=== PATIENT | male | born 1965 | race Caucasian/White ===

== ENCOUNTER 2017-01-01 14:54 | Emergency (ER) | payer BC ==
[2017-01-01 21:03] VITALS: BP 128/72
--- NOTE | 2017-01-01 22:42 | EDM.PDOC ---
ED HPI Trauma - General Chief Complaint: Upper Extremity Injury/Pain Stated Complaint: RIGHT SHOULDER INJURY Time Seen by Provider: 01/01/17 15:00 Source: Reports: Patient, Family () History Limitations: Reports: No limitations - History of Present Illness INITIAL COMMENTS - FREE TEXT/NARRATIVE: 51-year-old [id number] male comes in today with complaints of right shoulder pain. 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 Pain radiated down lateralizing the shoulder. He denies significant numbness or weakness. He denies neck pain, chest pain or shortness of breath. Has no other complaints other than right shoulder pain. Occurred When: this morning Occurred Where: work Method of Injury: direct blow Severity: mild Pain/Injury Location: Reports: upper extremity, right Consciousness: Reports: no loss of consciousness, remembers incident Associated Symptoms: Reports: no other symptoms Allergies/ADRs: Allergies amoxicillin Allergy (Verified 01/01/17 15:40) Cannot Remember cephalexin [From Keflex] Allergy (Verified 01/01/17 15:40) Cannot Remember doxycycline Allergy (Verified 01/01/17 15:40) Cannot Remember Home Medications: Ambulatory Orders Albuterol [Proair HFA] 1 puff INH Q4H PRN 01/01/17 [Confirmed 01/01/17] Ibuprofen 600 - 800 mg PO Q8H PRN 01/01/17 [Confirmed 01/01/17] Past Medical History - Past Health History Medical/Surgical History: Denies Medical/Surgical History Social & Family History - Tobacco Use Smoking Status *Q: Never Smoker Second Hand Smoke Exposure: No - Caffeine Use Caffeine Use: Reports: Coffee - Recreational Drug Use Recreational Drug Use: No Review of Systems - Review of Systems Review Of Systems: ROS reveals no pertinent complaints other than HPI. Trauma Exam - Physical Exam Exam: See Below Exam Limited By: No limitations General Appearance: Reports: alert, WD/WN, no apparent distress Head: Reports: atraumatic, normocephalic Eyes: bilateral eye: EOMI Nose: Reports: normal inspection Throat/Mouth: Reports: Normal voice Neck: Reports: non-tender, full range of motion Respiratory Exam: Reports: no respiratory distress Back: Reports: full range of motion Extremities: Reports: no evidence of injury, normal range of motion, non-tender , no pedal edema, pain with movement, other (patient has no tenderness over the proximal shoulder, a.c. joint or clavicle. He is able to actively range his shoulder he has no impingement symptoms with Neer and Martinez testing. He is good strength with flexion and abduction has mild weakness with resisted internal rotation on the right has good biceps strength of finger wrist forearm elbow and shoulder range of motion to her cuff strength a left shoulders 5 out of 5 in all planes he has normal range of motion of the left shoulder). Denies : bony-point tenderness Course - Vital Signs Last Recorded V/S: Last Vital Signs Temp 98.5 F 01/01/17 15:00 Pulse 80 01/01/17 15:00 Resp 16 01/01/17 15:00 BP 128/72 01/01/17 15:00 Pulse Ox 98 01/01/17 15:00 - Radiology Interpretation Free Text/Narrative:: X-rays right shoulder Impression Negative for fracture dislocation right shoulder Departure - Departure Time of Disposition: 16:00 Disposition: Home, Self-Care 01 Condition: good Clinical Impression: Contusion of right shoulder Qualifiers: Encounter type: initial encounter Qualified Code(s): S40.011A - Contusion of right shoulder, initial encounter Referrals: Alissa Corey MD [Primary Care Provider] - Forms: ED Department Discharge Additional Instructions: 1. Ibuprofen 800 mg 3 times a day with food for 10 days. This causes any stomach upset, heartburn 2. If continuation of pain beyond 2 weeks follow up with her primary care and recommend initiation of physical therapy for rotator cuff strengthening exercises. 3. if pain resolves he may increase her activities as tolerated. - Assessment/Plan Assessment:: Right shoulder contusion Plan: 1. Rest 2. ibuprofen 800 mg 3 times a day with food stop if this causes any stomach upset 3. ice for the right shoulder as needed. 4. Follow up with primary care in 2 weeks if not better would recommend physical therapy to treat and evaluate.
== END 2017-01-01 16:30 | disposition home or self-care (01) ==
LOC: KA.ED 14:54
DX: S40.011A Contusion of right shoulder, initial encounter (principal); Z88.1 Allergy status to other antibiotic agents; Z88.8 Allergy status to other drugs, medicaments and biological substances; W26.8XXA Contact with other sharp object(s), not elsewhere classified, initial encounter; Y93.89 Activity, other specified
CPT/HCPCS: 73030-RT; 99283

== ENCOUNTER 2018-12-29 09:53 | Emergency (ER) | payer BC, OTHER ==
[2018-12-29 10:01] VITALS: BP 129/79
--- NOTE | 2018-12-29 10:49 | CR ---
[id number] RAD/RAD Ankle Left 3V Min EXAM: RAD Ankle Left 3V Min CLINICAL DATA: TRAUMA COMPARISON: NO PREVIOUS SIMILAR EXAM IS AVAILABLE. FINDINGS: A distal left fibular diametaphyseal fracture is seen. There is also suspicion for a distal left tibial diametaphyseal fracture.. IMPRESSION: NONDISPLACED DISTAL LEFT FIBULAR FRACTURE. QUESTION OF DISTAL LEFT TIBIAL FRACTURE ALSO. Robb Evans MD 12/29/18 1048 Thank you for allowing us to participate in the care of your patient.
--- NOTE | 2018-12-29 10:52 | CR ---
[id number] RAD/RAD Tibia Fibula Left Exam: RAD Tibia Fibula Left Indication:FALL AT WORK,HEARD CRACKING. Comparison: No prior imaging for comparison. Discussion: Acute nondisplaced obliquely orientated distal fibular metaphysis fracture. No other fracture. Impression: As above. Jose Juan Jack MD 12/29/18 1051 Thank you for allowing us to participate in the care of your patient.
--- NOTE | 2018-12-29 11:08 | EDM.PDOC ---
ED HPI GENERAL MEDICAL PROBLEM - General Chief Complaint: Lower Extremity Injury/Pain Stated Complaint: FALL AT WORK - LT ANKLE Time Seen by Provider: 12/29/18 10:30 Source of Information: Reports: Patient, Family () History Limitations: Reports: No Limitations - History of Present Illness Onset: Today Onset Date: 12/29/18 Onset Time: 10:00 Duration: Minutes:, Constant Location: Reports: Lower Extremity, Left Quality: Reports: Ache Severity: Mild Improves with: Reports: Immobilization Worsens with: Reports: Movement Context: Reports: Other (fall at work) Left Leg Pain Score (Numeric/FACES): 9 - Related Data Allergies Allergy/AdvReac Type Severity Reaction Status Date / Time amoxicillin Allergy Cannot Verified 01/01/17 15:40 Remember cephalexin [From Keflex] Allergy Cannot Verified 01/01/17 15:40 Remember doxycycline Allergy Cannot Verified 01/01/17 15:40 Remember lactose Allergy Cannot Verified 12/29/18 10:01 Remember Home Meds: Home Meds Albuterol [Proair HFA] 1 - 2 puff INH Q4H PRN 01/01/17 [History] Ibuprofen 600 - 800 mg PO Q8H PRN 01/01/17 [History] Fexofenadine [Bridget] 180 mg PO DAILY 12/29/18 [History] Fluticasone Propionate [Flonase] 2 puff NASBOTH DAILY 12/29/18 [History] Fluticasone/Salmeterol [Advair 500-50] 1 puff INH BID 12/29/18 [History] Sildenafil Citrate [Sildenafil] 60 mg PO ASDIRECTED PRN 12/29/18 [History] Past Medical History - Past Health History Medical/Surgical History: Denies Medical/Surgical History HEENT History: Reports: Impaired Vision Respiratory History: Reports: Asthma Social & Family History - Caffeine Use Caffeine Use: Reports: Coffee - Alcohol Use Alcohol Use History: Yes Number of Drinks Per Day: 1 Alcohol Use Frequency: Daily - Recreational Drug Use Recreational Drug Use: No - Living Situation & Occupation Living situation: Reports: Occupation: Employed ([employer] in [place], [place]) Review of Systems - Review of Systems Review Of Systems: See Below Constitutional: Denies: Chills, Fever Eyes: Reports: Glasses Ears: Reports: No Symptoms Nose: Reports: Congestion. Denies: Purulent Discharge Mouth/Throat: Reports: No Symptoms Respiratory: Reports: Cough. Denies: Sputum, Hemoptysis Cardiovascular: Denies: Chest Pain, Edema, Irregular Heart Rate, Palpitations GI/Abdominal: Denies: Nausea, Vomiting Genitourinary: Reports: No Symptoms Musculoskeletal: Reports: Joint Pain (left ankle), Joint Swelling (left ankle lateral) Skin: Reports: No Symptoms Neurological: Reports: No Symptoms Psychiatric: Reports: No Symptoms ED EXAM, GENERAL - Physical Exam Exam: See Below Exam Limited By: No Limitations General Appearance: Alert, WD/WN, No Apparent Distress Eye Exam: Bilateral Eye: EOMI, PERRL Ears: Normal External Exam, Normal Canal, Normal TMs Ear Exam: Bilateral Ear: TM normal Nose: Normal Inspection, Normal Mucosa Throat/Mouth: Normal Inspection, Normal Lips, Normal Teeth, Normal Gums, Normal Oropharynx, Normal Voice, No Airway Compromise Head: Atraumatic, Normocephalic Neck: Normal Inspection, Supple, Non-Tender, Full Range of Motion. No: Lymphadenopathy (L), Lymphadenopathy (R) Respiratory/Chest: No Respiratory Distress, Lungs Clear, Normal Breath Sounds, No Accessory Muscle Use, Chest Non-Tender Cardiovascular: Normal Peripheral Pulses, Regular Rate, Rhythm, No Murmur Peripheral Pulses: 2+: Carotid (L), Carotid (R), Posterior Tibial (L), Posterior Tibial (R), Dorsalis Pedis (L), Dorsalis Pedis (R) GI/Abdominal: Soft, Non-Tender Back Exam: Normal Inspection Extremities: Other (Notable swelling over the lateral ankle left tenderness to palpation. Achilles is intact. Skin is warm dry and intact. No abrasions. No ecchymosis. Pulses are 2+ he has no tenderness to palpation along the medial ankle. Knee and hip range of motion are normal. Other extremity on the right shows full range of motion of ankle knee and hip. Bilateral upper extremities showed normal range of motion.) Neurological: Alert, Oriented, CN II-XII Intact, Normal Cognition, No Motor/ Sensory Deficits Psychiatric: Normal Affect, Normal Mood Skin Exam: Warm, Dry, Intact, Normal Color, No Rash Lymphatic: No Adenopathy ED TRAUMA EXTREMITY PROCEDURES - Splinting Left Lower Extremity Pre-Procedure NV Status: Normal Post-Procedure NV Status: Normal Splint Material: Fiberglass Splint Design: Posterior Applied & Form Fitted By: Provider Provider Post-Splint Application NV Check: NV Status Normal, Good Position Complications: No Course - Vital Signs Last Recorded V/S: Last Vital Signs Temp 97.4 F 12/29/18 09:56 Pulse 111 H 12/29/18 09:56 Resp 16 12/29/18 09:56 BP 129/79 12/29/18 09:56 Pulse Ox 97 12/29/18 09:56 - Orders/Labs/Meds Orders: Active Orders 24 hr Category Date Time Status CXR [Chest 2V] [CR] Stat Exams 12/29/18 10:57 Ordered CBC WITH AUTO DIFF [HEME] Stat Lab 12/29/18 10:56 Ordered - Radiology Interpretation Free Text/Narrative:: X-rays 2 views left tib-fib Interpretation: There is a distal fibular fracture mild displacement Impression: Left mildly displaced comminuted distal fibular fracture X-rays 3 views left ankle Interpretation: Mildly displaced comminuted spiral distal fibular fracture Impression: Left lateral malleolus fracture mild displacement - Re-Assessments/Exams Free Text/Narrative Re-Assessment/Exam: 12/29/18 11:20 Posterior splint was applied with a good pedal pulses. Patient tolerated procedure. His pain was well-controlled. He denied wanting anything for pain. Ice pack was applied to left ankle Departure - Departure Time of Disposition: 11:45 Disposition: DC/Tfer to Other 70 Condition: Good Clinical Impression: Fracture of fibula, distal, left, closed Qualifiers: Encounter type: initial encounter Fracture morphology: torus Qualified Code(s) : S82.822A - Torus fracture of lower end of left fibula, initial encounter for closed fracture - Discharge Information Instructions: Displaced Fibular Ankle Fracture Treated With ORIF Referrals: Alissa Corey MD [Primary Care Provider] - Forms: ED Department Discharge - My Orders Last 24 Hours: My Active Orders 12/29/18 10:56 CBC WITH AUTO DIFF [HEME] Stat 12/29/18 10:57 CXR [Chest 2V] [CR] Stat - Assessment/Plan Last 24 Hours: My Active Orders 12/29/18 10:56 CBC WITH AUTO DIFF [HEME] Stat 12/29/18 10:57 CXR [Chest 2V] [CR] Stat Assessment:: Left distal fibular fracture Plan: 1. Compression of Den wrap and posterior splint was applied to left ankle. 2. Discussion with the patient and his about ORIF left distal fibula versus cast immobilization. Patient elects to get this fixed to expedite recovery. 3. Patient will remain nothing by mouth 4. Patient will go to [facility] through the ER and Dr. Dominguez will plan on fixing his ankle this afternoon. 5. Patient's pain was well-controlled at time of discharge. He will be discharged in the care of his and will go directly to the emergency room.
--- NOTE | 2018-12-29 11:48 | CR ---
[id number] RAD/RAD Chest PA And Lateral EXAM: RAD Chest PA And Lateral CLINICAL DATA: COUGH COMPARISON: CORRELATION IS MADE WITH THE EXAM OF 2016. FINDINGS: The lungs are clear but hyperaerated. The cardiomediastinal contour is normal. The regional bones and soft tissues are unremarkable. IMPRESSION: QUESTION OF REACTIVE AIRWAY DISEASE. Robb Evans MD 12/29/18 [id number] Thank you for allowing us to participate in the care of your patient.
== END 2018-12-29 12:00 | disposition other institution (70) ==
LOC: KA.ED 09:53
DX: S82.822A Torus fracture of lower end of left fibula, initial encounter for closed fracture (principal); J45.909 Unspecified asthma, uncomplicated; Z91.011 Allergy to milk products; Z88.1 Allergy status to other antibiotic agents; W19.XXXA Unspecified fall, initial encounter; Y99.0 Civilian activity done for income or pay
CPT/HCPCS: 29515; 36415; 71046; 73590-LT; 73610-LT; 85025; 99284-25

== ENCOUNTER 2018-12-31 09:37 | Emergency (ER) | payer BC, OTHER ==
--- NOTE | 2018-12-31 10:18 | EDM.PDOC ---
ED HPI GENERAL MEDICAL PROBLEM - General Chief Complaint: Lower Extremity Injury/Pain Stated Complaint: FOOT PAIN Time Seen by Provider: 12/31/18 10:00 Source of Information: Reports: Patient, Family () History Limitations: Reports: No Limitations - History of Present Illness INITIAL COMMENTS - FREE TEXT/NARRATIVE: Maged presents to emergency room with complaints of left ankle pain. He is status post ORIF left distal fibula on Tuesday. He is placed in a cam walker boot and dressing with crutches instructed to weight-bear as tolerated. He lost his balance with the crutches yesterday evening and fell backwards. He noticed increasing pain in his ankle. He tried elevation and pain medications. He does state that it is better today but they were concerned that he may have done something to his ankle and therefore presents to the emergency room. His pain is well controlled. He is comfortable with his . No other complaints are voiced. 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) - Related Data Allergies Allergy/AdvReac Type Severity Reaction Status Date / Time amoxicillin Allergy Cannot Verified 12/31/18 10:09 Remember cephalexin [From Keflex] Allergy Cannot Verified 12/31/18 10:09 Remember doxycycline Allergy Cannot Verified 12/31/18 10:09 Remember lactose Allergy Cannot Verified 12/31/18 10:09 Remember Home Meds: Home Meds Albuterol [Proair HFA] 1 - 2 puff INH Q4H PRN 01/01/17 [History] Ibuprofen 600 - 800 mg PO Q8H PRN 01/01/17 [History] Fexofenadine [Bridget] 180 mg PO DAILY 12/29/18 [History] Fluticasone Propionate [Flonase] 2 puff NASBOTH DAILY 12/29/18 [History] Fluticasone/Salmeterol [Advair 500-50] 1 puff INH BID 12/29/18 [History] Sildenafil Citrate [Sildenafil] 60 mg PO ASDIRECTED PRN 12/29/18 [History] Hydrocodone/Acetaminophen [Hydrocodon-Acetaminophen 5-325] 1 - 2 tab PO Q6H PRN 12/31/18 [History] Past Medical History - Past Health History Medical/Surgical History: Denies Medical/Surgical History HEENT History: Reports: Impaired Vision Respiratory History: Reports: Asthma Social & Family History - Caffeine Use Caffeine Use: Reports: Coffee - Living Situation & Occupation Living situation: Reports: Occupation: Employed ([employer] in [place], [place]) Review of Systems - Review of Systems Review Of Systems: ROS reveals no pertinent complaints other than HPI. ED EXAM, GENERAL - Physical Exam Exam: See Below Exam Limited By: No Limitations General Appearance: Alert, WD/WN, No Apparent Distress Extremities: Normal Inspection, Other (Patient has a Cam Walker boot in his left ankle Den wrap around it dressing is dry toes are mobile. Normal knee range of motion and hip range of motion on the left) Neurological: Alert, Oriented, No Motor/Sensory Deficits Psychiatric: Normal Affect, Normal Mood Skin Exam: Warm Course - Radiology Interpretation Free Text/Narrative:: X-rays left ankle: There is interfragment screw as well as plate and screws stabilizing left distal fibular fracture nondisplaced Impression: Distal fibular fracture and nondisplaced with hardware in good position and alignment Departure - Departure Time of Disposition: 10:40 Disposition: Home, Self-Care 01 Condition: Good Clinical Impression: Status post ORIF of fracture of ankle Fracture of fibula, distal, left, closed Qualifiers: Encounter type: initial encounter Fracture morphology: torus Qualified Code(s) : S82.822A - Torus fracture of lower end of left fibula, initial encounter for closed fracture Closed fracture of fibula, distal Qualifiers: Encounter type: subsequent encounter Fracture morphology: torus Laterality: left Fracture healing: with routine healing Qualified Code(s): S82.822D - Torus fracture of lower end of left fibula, subsequent encounter for fracture with routine healing - Discharge Information Instructions: Displaced Fibular Ankle Fracture Treated With ORIF Referrals: Alissa Corey MD [Primary Care Provider] - Forms: ED Department Discharge Additional Instructions: 1. continue with current care and instructions by Dr. Dominguez. 2. Continue with ice and elevation 3. Pain medications as needed 4. Follow-up with Dr. Dominguez at regular scheduled appointment. - Assessment/Plan Assessment:: s/p left fibula fracture ORIF POD#2 fall with increased ankle pain. Plan: 1. continue with current care and instructions by Dr. Dominguez. 2. Continue with ice and elevation 3. Pain medications as needed 4. Follow-up with Dr. Dominguez at regular scheduled appointment.
--- NOTE | 2018-12-31 10:46 | CR ---
[id number] RAD/RAD Ankle Left 3V Min Exam: RAD Ankle Left 3V Min Indication:FALL, STATUS POST FIBULA ORIF TUESDAY. Comparison: December 29, 2018 Discussion: Postsurgical change from recent ORIF. Hardware remains intact. Fracture fragments are in normal alignment. No new fractures. Impression: Postsurgical changes from recent fibula ORIF. No new fracture. Jose Juan Jack MD 12/31/18 1044 Thank you for allowing us to participate in the care of your patient.
[2018-12-31 15:53] VITALS: BP 122/78
== END 2018-12-31 10:40 | disposition home or self-care (01) ==
LOC: KA.ED 09:37
DX: S82.822D Torus fracture of lower end of left fibula, subsequent encounter for fracture with routine healing (principal); J45.909 Unspecified asthma, uncomplicated; Z79.899 Other long term (current) drug therapy; Z88.1 Allergy status to other antibiotic agents; Z91.011 Allergy to milk products; W19.XXXD Unspecified fall, subsequent encounter
CPT/HCPCS: 73600-LT; 99283-25

== ENCOUNTER 2020-10-04 09:17 | Emergency (ER) | payer BC ==
[2020-10-04 09:23] VITALS: BP 143/94; PULSE 74
--- NOTE | 2020-10-04 10:08 | EDM.PDOC ---
ED HPI GENERAL MEDICAL PROBLEM - General Chief Complaint: General Stated Complaint: LEFT INDEX FINGER??? Time Seen by Provider: 10/04/20 09:46 Source of Information: Reports: Patient History Limitations: Reports: No Limitations - History of Present Illness INITIAL COMMENTS - FREE TEXT/NARRATIVE: Presents to the emergency room by self for a left index finger swelling, redness, and pain. Denies any known trauma. He notes that last night he felt like there might be something in his finger and he started taking added at the DIP joint on the palmar aspect. There is just a small little open site at the crease there no bleeding purulent drainage however he does have redness and swelling down close but not past the MCP joint. He is able to flex and extend his finger without difficulty at this time. Patient denies any systemic symptoms. 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 His fingers are quite greasy and dirty at this time. Left Finger-Index Pain Score (Numeric/FACES): 6 - Related Data Allergies Allergy/AdvReac Type Severity Reaction Status Date / Time amoxicillin Allergy Cannot Verified 10/04/20 09:24 Remember azithromycin [From Zithromax] Allergy Hives Verified 10/04/20 09:26 cephalexin [From Keflex] Allergy Cannot Verified 10/04/20 09:24 Remember doxycycline Allergy Cannot Verified 10/04/20 09:24 Remember lactose Allergy Cannot Verified 10/04/20 09:24 Remember Home Meds: Home Meds Albuterol [Proair HFA] 1 - 2 puff INH Q4H PRN 01/01/17 [History] Ibuprofen 600 - 800 mg PO Q8H PRN 01/01/17 [History] Fexofenadine [Bridget] 180 mg PO DAILY 12/29/18 [History] Fluticasone Propionate [Flonase] 2 puff NASBOTH DAILY 12/29/18 [History] Fluticasone/Salmeterol [Advair 500-50] 1 puff INH BID 12/29/18 [History] Sildenafil Citrate [Sildenafil] 60 mg PO ASDIRECTED PRN 12/29/18 [History] Hydrocodone/Acetaminophen [Hydrocodon-Acetaminophen 5-325] 1 - 2 tab PO Q6H PRN 12/31/18 [History] Past Medical History - Past Health History Medical/Surgical History: Denies Medical/Surgical History HEENT History: Reports: Impaired Vision Respiratory History: Reports: Asthma Musculoskeletal History: Reports: Fracture - Past Surgical History Musculoskeletal Surgical History: Reports: ORIF, Other (See Below) Other Musculoskeletal Surgeries/Procedures:: Left fibula fracture with ORIF 12/29/18 Social & Family History - Tobacco Use Tobacco Use Status *Q: Never Tobacco User - Caffeine Use Caffeine Use: Reports: Coffee - Recreational Drug Use Recreational Drug Use: No - Living Situation & Occupation Living situation: Reports: Occupation: Employed ([employer] in [place], [place]) ED ROS GENERAL - Review of Systems Review Of Systems: See Below Constitutional: Reports: No Symptoms. Denies: Fever Respiratory: Reports: No Symptoms Cardiovascular: Reports: No Symptoms GI/Abdominal: Reports: No Symptoms Musculoskeletal: Reports: Other (index finger swelling/pain/redness) Skin: Reports: Erythema, Wound Neurological: Reports: No Symptoms Psychiatric: Reports: No Symptoms ED EXAM, GENERAL - Physical Exam Exam: See Below Exam Limited By: No Limitations General Appearance: Alert, WD/WN, No Apparent Distress Eye Exam: Bilateral Eye: EOMI Nose: Normal Inspection Head: Atraumatic, Normocephalic Neck: Normal Inspection, Supple Extremities: Other (left index finger swelling, warm to touch, erythema is fro mthe tip of the finger down close but not past the MCP joint. ) Neurological: Alert, Oriented Psychiatric: Normal Affect, Normal Mood Skin Exam: Warm, Dry, Intact, Erythema Lymphatic: No Adenopathy Course - Vital Signs Last Recorded V/S: Last Vital Signs Temp 97.9 F 10/04/20 09:21 Pulse 74 10/04/20 09:21 Resp 14 10/04/20 09:21 BP 143/94 H 10/04/20 09:21 Pulse Ox 94 L 10/04/20 09:21 - Orders/Labs/Meds Orders: Active Orders 24 hr Category Date Time Status Fingers Second Digit Lt F1 [CR] Stat Exams 10/04/20 09:35 Ordered - Re-Assessments/Exams Free Text/Narrative Re-Assessment/Exam: 10/04/20 10:14 Negative for any fracture or foreign body or signs of air in the subcutaneous tissue. Due to his allergy list clindamycin indicate this time. Patient is going to take probiotics as well called prescription to the pharmacy. He does not have signs of flexor tenosynovitis at this time however I cautioned it the advised him thoroughly educated him on signs and symptoms of this and that it could get worse and need to return and may need to go to a higher acuity facility for the orthopedic surgeon to look at his finger. At this time is not indicated however he verbalized understanding on return precautions and have low threshold on do ing so. Nursing staff cleaned his finger up antiseptic used tetanus was 3 [address] a blue finger splint to keep it from further injury/rice therapy discussed. Distal neurovascular intact. 10/04/20 10:16 Departure - Departure Time of Disposition: 10:09 Disposition: Home, Self-Care 01 Condition: Good Clinical Impression: Cellulitis of left index finger - Discharge Information *PRESCRIPTION DRUG MONITORING PROGRAM REVIEWED*: No *COPY OF PRESCRIPTION DRUG MONITORING REPORT IN PATIENT SMITA: No Instructions: Cellulitis, Adult Referrals: Alissa Corey MD [Primary Care Provider] - Additional Instructions: if it gets more swollen redness spread farther, and cant extend the finger due to the pain and swelling, need to return immediately. keep it straight, ice it, take antibiotics. Sepsis Event Note (ED) - Evaluation Sepsis Screening Result: No Definite Risk - Focused Exam Vital Signs: Vital Signs Temp Pulse Resp BP Pulse Ox 10/04/20 09:21 97.9 F 74 14 143/94 H 94 L - My Orders Last 24 Hours: My Active Orders 10/04/20 09:35 Fingers Second Digit Lt F1 [CR] Stat - Assessment/Plan Last 24 Hours: My Active Orders 10/04/20 09:35 Fingers Second Digit Lt F1 [CR] Stat
--- NOTE | 2020-10-04 10:27 | CR ---
[id number] RAD/RAD Fingers Left EXAM: RAD Fingers Left INDICATION: SWELLING AND PAIN AT DIP JOINT. COMPARISON: None. DISCUSSION: Soft tissue swelling throughout the second digit. Mild to moderate osteoarthritis of the second and third digit metacarpophalangeal, proximal interphalangeal and distal interphalangeal joints. Tiny ossicles along the ulnar aspect of the second MCP and third PIP joints are likely degenerative, but could represent tiny chronic avulsion fractures. No acute fracture or dislocation is identified. IMPRESSION: 1. Mild to moderate osteoarthritis. 2. Diffuse second digit soft tissue swelling. Brandon Flanagan MD 10/04/20 1026 Thank you for allowing us to participate in the care of your patient.
== END 2020-10-04 10:25 | disposition home or self-care (01) ==
LOC: KA.ED 09:17
DX: L03.012 Cellulitis of left finger (principal); J45.909 Unspecified asthma, uncomplicated; Z79.899 Other long term (current) drug therapy; Z88.0 Allergy status to penicillin; Z88.1 Allergy status to other antibiotic agents; Z91.011 Allergy to milk products
CPT/HCPCS: 73140-F1; 99283; 99283-25

== ENCOUNTER 2023-06-01 19:03 | Emergency (ER) | payer BC ==
[2023-06-01] MEDS ORDERED: Naloxone 0.4 MG/ML SDV IVPUSH PRN (19:27)
[2023-06-01] MEDS: Sodium Chloride 0.9% 10 ML Syringe FLUSH PRN (19:28)
[2023-06-01] MEDS: Ondansetron 4 MG/2 ML SDV IVPUSH ONE (19:40)
[2023-06-01] MEDS: HYDROmorphone 1 MG/ML Syringe IVPUSH ONE (19:46)
[2023-06-01] MEDS: Sodium Chloride 0.9% 1,000 ML IV ONE (19:55)
[2023-06-01 20:00] LABS: BASOPHILS ABSOLUTE AUTO 0.02 10^3/uL (0.00-0.10); BASOPHILS PERCENT AUTO 0.3 % (0.0-1.0); EOSINOPHILS ABSOLUTE AUTO 0.49 10^3/uL (0.10-0.30); EOSINOPHILS PERCENT AUTO 6.3 % (1.0-3.0); HEMATOCRIT 52.3 % (40.0-52.0); HEMOGLOBIN 17.3 g/dL (13.0-17.0); IMMATURE GRAN ABSOLUTE AUTO 0.01 10^3/uL (0.00-0.50); IMMATURE GRAN PERCENT AUTO 0.1 % (0.0-5.0); LYMPHOCYTES ABSOLUTE AUTO 0.97 10^3/uL (1.00-4.00); LYMPHOCYTES PERCENT AUTO 12.5 % (20.0-40.0); MEAN CORPUSCULAR HEMOGLOBIN 30.9 pg (27.0-31.0); MEAN CORPUSCULAR HGB CONC 33.1 g/dL (32.0-36.0); MEAN CORPUSCULAR VOLUME 93.4 fL (82.0-92.0); MEAN PLATELET VOLUME 9.6 fL (7.4-10.4); MONOCYTES ABSOLUTE AUTO 0.82 10^3/uL (0.10-0.80); MONOCYTES PERCENT AUTO 10.6 % (2.0-8.0); NEUTROPHILS ABSOLUTE AUTO 5.44 10^3/uL (2.50-7.00); NEUTROPHILS PERCENT AUTO 70.2 % (50.0-70.0); PLATELET COUNT,PLT 203 10^3/uL (150-400); RED CELL DISTRIBUTION WIDTH 13.1 % (11.5-14.5); WHITE BLOOD CELL COUNT,WBC 7.75 10^3/uL (5.00-10.00)
[2023-06-01 20:08] VITALS: BP 128/85; PULSE 82
[2023-06-01 20:15] LABS: ALBUMIN 3.71 g/dL (3.40-5.00); BILIRUBIN TOTAL 1.6 mg/dL (0.2-1.0); CALCIUM 8.9 mg/dL (8.7-10.3); CREATININE 1.08 mg/dL (0.51-1.17); EST CRCL DRUG DOSING (CG) 82.83 mL/min; PROTEIN TOTAL,TP 7.5 g/dL (6.4-8.2)
[2023-06-01] MEDS: Iopamidol 755 Mg/ML 100 ML Bottle IV ONE (20:54)
[2023-06-01] MEDS: Sodium Chloride 0.9% 50 ML IV SCH (20:54)
[2023-06-01] MEDS: Ciprofloxacin 500 MG Tab PO ONE (22:17)
[2023-06-01] MEDS: metroNIDAZOLE 500 MG Tab PO ONE (22:18)
== END 2023-06-01 22:40 | disposition home or self-care (01) ==
LOC: KA.ED 19:03
DX: K57.32 Diverticulitis of large intestine without perforation or abscess without bleeding (principal); K40.20 Bilateral inguinal hernia, without obstruction or gangrene, not specified as recurrent; K76.9 Liver disease, unspecified; J45.909 Unspecified asthma, uncomplicated; Z88.0 Allergy status to penicillin; Z88.1 Allergy status to other antibiotic agents; Z91.011 Allergy to milk products; Z91.048 Other nonmedicinal substance allergy status
CPT/HCPCS: 74177; 80053; 82150; 83690; 85025; 96374; 96375; 99284; 99284-25; A9270-GY; J1170; J2405; J3490; J7030; Q9967

== ENCOUNTER 2023-07-12 08:47 | Day surgery (SDC) | payer BC ==
[2023-07-12] MEDS ORDERED: Propofol 200 MG/20 ML SDV ONE (09:42)
[2023-07-12] MEDS ORDERED: Midazolam 1 MG/ML 2 ML SDV ONE (09:42)
[2023-07-12] MEDS ORDERED: Sodium Chloride 0.9% 10 ML Syringe FLUSH PRN (10:00)
[2023-07-12] MEDS ORDERED: Lactated Ringers 1,000 ML IV SCH (10:00)
[2023-07-12 12:23] VITALS: BP 125/77; PULSE 80
== END 2023-07-12 12:00 | disposition home or self-care (01) ==
LOC: KA.SDS 08:47
PROVIDERS: ATTEND Surgery
DX: D12.5 Benign neoplasm of sigmoid colon (principal); K57.30 Diverticulosis of large intestine without perforation or abscess without bleeding; K64.4 Residual hemorrhoidal skin tags; K76.9 Liver disease, unspecified; J45.909 Unspecified asthma, uncomplicated; Z87.19 Personal history of other diseases of the digestive system; Z88.0 Allergy status to penicillin; Z88.1 Allergy status to other antibiotic agents; Z88.8 Allergy status to other drugs, medicaments and biological substances; Z79.899 Other long term (current) drug therapy
CPT/HCPCS: 00812; J2250; J2704; J7120

== ENCOUNTER 2024-01-10 18:26 | Emergency (ER) | payer BC ==
[2024-01-10] MEDS: Sodium Chloride 0.9% 10 ML Syringe FLUSH PRN (18:38)
[2024-01-10] MEDS: Sodium Chloride 0.9% 1,000 ML IV ONE (18:51)
[2024-01-10 18:54] LABS: BASOPHILS ABSOLUTE AUTO 0.02 10^3/uL (0.00-0.10); BASOPHILS PERCENT AUTO 0.3 % (0.0-1.0); EOSINOPHILS ABSOLUTE AUTO 0.66 10^3/uL (0.10-0.30); EOSINOPHILS PERCENT AUTO 10.9 % (1.0-3.0); HEMATOCRIT 51.5 % (40.0-52.0); HEMOGLOBIN 17.3 g/dL (13.0-17.0); LYMPHOCYTES ABSOLUTE AUTO 1.16 10^3/uL (1.00-4.00); LYMPHOCYTES PERCENT AUTO 19.1 % (20.0-40.0); MEAN CORPUSCULAR HEMOGLOBIN 30.6 pg (27.0-31.0); MEAN CORPUSCULAR HGB CONC 33.6 g/dL (32.0-36.0); MEAN CORPUSCULAR VOLUME 91.2 fL (82.0-92.0); MEAN PLATELET VOLUME 9.8 fL (7.4-10.4); MONOCYTES ABSOLUTE AUTO 0.72 10^3/uL (0.10-0.80); MONOCYTES PERCENT AUTO 11.9 % (2.0-8.0); NEUTROPHILS PERCENT AUTO 57.8 % (50.0-70.0); PLATELET COUNT,PLT 193 10^3/uL (150-400); RED BLOOD CELL COUNT 5.65 10^6/uL (4.50-6.00); RED CELL DISTRIBUTION WIDTH 13.2 % (11.5-14.5); WHITE BLOOD CELL COUNT,WBC 6.06 10^3/uL (5.00-10.00)
[2024-01-10 19:08] LABS: ALBUMIN 3.82 g/dL (3.40-5.00); ANION GAP 14.5 mmol/L (5-15); BILIRUBIN TOTAL 1.3 mg/dL (0.2-1.0); C-REACTIVE PROTEIN 0.6 mg/dL (0.00-0.50); CALCIUM 8.2 mg/dL (8.7-10.3); CARBON DIOXIDE,CO2 27.5 mmol/L (21.0-32.0); CREATININE 0.88 mg/dL (0.51-1.17); EST CRCL DRUG DOSING (CG) 91.5 mL/min; PROTEIN TOTAL,TP 7.1 g/dL (6.4-8.2)
[2024-01-10] MEDS: Sodium Chloride 0.9% 50 ML IV SCH (19:56)
[2024-01-10] MEDS: Iopamidol 755 Mg/ML 100 ML Bottle IV ONE (19:56)
[2024-01-10 20:09] LABS: APPEARANCE,URINE CLEAR (CLEAR); BILIRUBIN,URINE NEGATIVE (NEGATIVE); COLOR,URINE YELLOW (YELLOW); GLUCOSE,URINE NEGATIVE (NEGATIVE); KETONES,URINE NEGATIVE (NEGATIVE); LEUKOCYTE ESTERASE,URINE NEGATIVE (NEGATIVE); NITRITE,URINE NEGATIVE (NEGATIVE); OCCULT BLOOD,URINE NEGATIVE (NEGATIVE); PROTEIN,URINE NEGATIVE (NEGATIVE); UROBILINOGEN,URINE 0.2 E.U./dL (0.2-1.0)
[2024-01-10 20:37] VITALS: BP 150/89; PULSE 72
== END 2024-01-10 20:50 | disposition home or self-care (01) ==
LOC: KA.ED 18:26
DX: K57.32 Diverticulitis of large intestine without perforation or abscess without bleeding (principal); J45.909 Unspecified asthma, uncomplicated; K21.9 Gastro-esophageal reflux disease without esophagitis; Z88.0 Allergy status to penicillin; Z88.1 Allergy status to other antibiotic agents; Z91.011 Allergy to milk products; Z91.048 Other nonmedicinal substance allergy status; Z79.51 Long term (current) use of inhaled steroids; Z79.899 Other long term (current) drug therapy
CPT/HCPCS: 36415; 74177; 80053; 81003; 85025; 86140; 99284; J3490; J7030; Q9967

== ENCOUNTER 2024-05-19 09:24 | Emergency (ER) | payer BC ==
[2024-05-19 09:40] VITALS: BP 126/83; PULSE 95
== END 2024-05-19 10:10 | disposition home or self-care (01) ==
LOC: KA.ED 09:24
DX: L03.115 Cellulitis of right lower limb (principal); K21.9 Gastro-esophageal reflux disease without esophagitis; J45.909 Unspecified asthma, uncomplicated; Z79.899 Other long term (current) drug therapy; Z91.048 Other nonmedicinal substance allergy status; Z91.011 Allergy to milk products; Z88.1 Allergy status to other antibiotic agents; Z88.0 Allergy status to penicillin
CPT/HCPCS: 99283

== ENCOUNTER 2025-02-05 11:19 | Emergency (ER) | payer BC, OTHER ==
[2025-02-05] MEDS: Diphtheria,Pertussis(Acell),Tetanus Vaccine 0.5 ML Syringe IM ONE (11:54)
[2025-02-05] MEDS: Lidocaine 2% 5 ML SDV INJECT ONE (11:55)
[2025-02-05 12:49] VITALS: BP 143/104; PULSE 73
== END 2025-02-05 12:38 | disposition home or self-care (01) ==
LOC: KA.ED 11:19
DX: S61.012A Laceration without foreign body of left thumb without damage to nail, initial encounter (principal); Z23 Encounter for immunization; J45.909 Unspecified asthma, uncomplicated; K21.9 Gastro-esophageal reflux disease without esophagitis; Z79.899 Other long term (current) drug therapy; Z91.048 Other nonmedicinal substance allergy status; Z91.011 Allergy to milk products; Z88.8 Allergy status to other drugs, medicaments and biological substances; Z88.1 Allergy status to other antibiotic agents; X50.9XXA Other and unspecified overexertion or strenuous movements or postures, initial encounter; Y99.0 Civilian activity done for income or pay; Y92.89 Other specified places as the place of occurrence of the external cause
CPT/HCPCS: 12002; 73140; 90471; 90715; 99283; J2003

== ENCOUNTER 2025-06-27 21:20 | Emergency (ER) | payer BC ==
[2025-06-27 23:16] VITALS: BP 158/96; PULSE 86
== END 2025-06-27 22:04 | disposition home or self-care (01) ==
LOC: KA.ED 21:20
DX: S61.011A Laceration without foreign body of right thumb without damage to nail, initial encounter (principal); J45.909 Unspecified asthma, uncomplicated; K21.9 Gastro-esophageal reflux disease without esophagitis; Z88.1 Allergy status to other antibiotic agents; Z91.011 Allergy to milk products; Z91.048 Other nonmedicinal substance allergy status; Z79.899 Other long term (current) drug therapy; W26.0XXA Contact with knife, initial encounter; Y93.89 Activity, other specified
CPT/HCPCS: 73140-F5; 99283